=== PATIENT | female | born 1960 | race Caucasian/White ===

== ENCOUNTER → 2023-10-12 16:04 | Outpatient (REF) | payer OTHER, MEDICARE, SELFPAY | LOC: HWWDC 16:04 | PROVIDERS: ATTENDING PHYSICIAN Nurse Practitioner Family; FAMILY PHYSICIAN Family Medicine | DX: Z12.31 Encounter for screening mammogram for malignant neoplasm of breast (principal) | CPT/HCPCS: 77063; 77067 ==

== ENCOUNTER → 2023-10-19 10:19 | Outpatient (REF) | payer MEDICARE, SELFPAY | LOC: WDC 10:19 | PROVIDERS: ATTENDING PHYSICIAN Nurse Practitioner Family; FAMILY PHYSICIAN Family Medicine | DX: R92.8 Other abnormal and inconclusive findings on diagnostic imaging of breast (principal) | CPT/HCPCS: 76642 ==

== ENCOUNTER → 2024-04-17 11:30 | Outpatient (REF) | payer MEDICARE, OTHER, SELFPAY ==
[2024-04-17 13:26] LABS: HDL Cholesterol 77 mg/dl; LDL Cholesterol, Calculated 83 mg/dl; Total Cholesterol 181 mg/dl (50-199); Triglyceride 105 mg/dl (10-149); Very Low Density Lipoprotein 21 mg/dl (0-30)
== END ==
LOC: RAD 11:30
PROVIDERS: ATTENDING PHYSICIAN Family Medicine; REFERRING PHYSICIAN Internal Medicine Cardiovascular Disease
DX: R91.1 Solitary pulmonary nodule (principal); M54.6 Pain in thoracic spine; M54.59 Other low back pain; E78.5 Hyperlipidemia, unspecified
CPT/HCPCS: 36415; 71260; 72072; 72110; 80061; Q9967

== ENCOUNTER 2024-07-10 11:14 | Emergency (ER) | payer MEDICARE, OTHER, SELFPAY ==
[2024-07-10 11:23] VITALS: BP 108/73
--- NOTE | 2024-07-10 12:26 | ED.GENMED ---
History of Present Illness
General
Chief Complaint: Cold/Flu/URI Symptoms
Time Seen by Provider: 07/10/24 12:11
History of Present Illness
History of Present Illness:
64-year-old female presents to the emergency department for evaluation of fever, body aches, headache, and cough productive of blood-tinged mucus for the past 24 to 48 hours. No chest pain or dyspnea. Reports she was diagnosed with petar MCKEON and
recently saw [facility] but is not on any current immunomodulating medications.
Past History
Past History
ED Past Medical History: Psychiatric and Other (Pancreatitis, Sleep apnea)
ED Past Surgical History: Appendectomy, Cholecystectomy and Orthopedic
Social History
Tobacco: Non-smoker
Alcohol: Occasional
Drug: None
Personal:
Living: alone
Employment: Employed
Family History
Family History: Hypertension and CAD; Negative Early CAD
Review of Systems
Review of Systems
Allergies reviewed?: Yes
All Other Systems: ROS reviewed and negative except as documented in HPI and ROS
Phy Exam
Physical Exam
Physical Exam:
GEN: Well appearing, NAD, WDWN
HEENT: Oral mucosa moist, no scleral icterus
Cardiac: Regular rate and rhythm, no murmurs
Lung: No respiratory distress, no tachypnea, lungs clear to auscultation bilaterally
MSK: No gross deformity or injuries
Skin: Good color, no pallor or jaundice, no rashes
Neuro: AO x3, moves all extremities freely
Psych: Calm, cooperative
Course
Orders/Labs/Results
Orders:
Orders
07/10/24 11:28
Electrocardiogram (*1) Urgent
Reason for Study: Other
Other Reason for Exam: SOB, chest heaviness
EKG- Treatment ONCE
07/10/24 12:25
CR Chest - 2 Views Urgent
Comment:
Reason For Exam: cough/hemoptysis
07/10/24 13:09
Acetaminophen [Tylenol] 1,000 mg .ROUTE .STK-MED ONE
07/10/24 13:14
Acetaminophen [Tylenol] 1,000 mg PO NOW STA
07/10/24 13:29
COVID-19 Antigen Urgent
Source: Nasal Swab
Complete Blood Count/With Diff Urgent
Comprehensive Metabolic Panel Urgent
Influenza A+B Rapid Molecular Urgent
WINDY Source: Nasal Swab
Specimen Description:
Abnormal Lab Results
07/10/24
13:29
RBC 4.09 L 10^6/uL
(4.20-5.40)
MCHC 32.6 L g/dL
(33.0-37.0)
MPV 10.6 H fL
(7.4-10.4)
Absolute Lymphs (auto) 0.8 L 10^3/uL
(1.2-3.4)
Neutrophils % 75.9 H %
(42.2-75.2)
Lymphocytes % 15.4 L %
(20.5-51.1)
Sodium 134 L mmol/L
(135-145)
Creatinine 1.2 H mg/dL
(0.6-1.0)
AST 38 H U/L
(14-36)
ALT 43 H U/L
(0-35)
07/10/24 13:29
07/10/24 13:29
Vital Signs
Initial and Last Documented VS:
Initial Vital Signs
Temp Pulse Resp BP Pulse Ox
99.2 F 82 18 108/73 96
07/10/24 11:23 07/10/24 11:23 07/10/24 11:23 07/10/24 11:23 07/10/24 11:23
Last Documented Vital Signs
Temp Pulse Resp BP Pulse Ox
102.1 F H 72 18 117/70 97
07/10/24 13:19 07/10/24 12:42 07/10/24 11:23 07/10/24 13:31 07/10/24 13:45
MDM/Problems Addressed
MDM/Problems Addressed:
Patient positive for influenza A, otherwise labs unremarkable, chest x-ray with no evidence for pneumonia. Given her advanced age and concerns about how this will compromise her long COVID syndrome we will treat with antivirals. Discussed side
effects and benefit of antivirals
*Critical Care Note
Total Time (30-74mins, 75-104mins- exclusive of procedures): Not Applicable
ED Attending Note
-
Portions of this chart may have been created with voice recognition software.� Occasional wrong word or��sound alike� substitutions may have occurred due to the inherent limitations of voice recognition software.
Discharge Plan
Departure
Patient Disposition: Home (Routine Discharge)
Date of Disposition: 07/10/24
Time of Disposition: 14:44
Patient with high blood pressure during this ER visit?: No
Discharge Problem:
Influenza A
Instructions: Flu in adults - Discharge instructions
Prescriptions:
New
oseltamivir [Tamiflu] 75 mg capsule
75 mg PO BID Qty: 10 0RF
No Action
Citalopram 40 MG Tab
40 mg PO DAILY
KLONOPIN 1 MG
1 mg PO BID
Referrals:
Kaiden Stein MD [Family Provider] -
Interventions
Interventions:
*Risk Screen - Suicide Last Done: 07/10/24 11:23
*General Assessment Last Done: 07/10/24 11:23
*Neglect/Abuse Screening Last Done: 07/10/24 11:23
ED- Fall Risk Assessment Last Done: 07/10/24 13:28
*ED COVID-19 Vaccine History Last Done: 07/10/24 15:29
*Nursing Disposition Last Done: 07/10/24 15:29
ED- Pulmonary Assessment Last Done: 07/10/24 13:28
Discharge Date and Time
Discharge Date/Time: 07/10/24 15:30
Print Language: FILIPINO
[2024-07-10 12:42] VITALS: BP 126/62; BMI 34.7
[2024-07-10 12:43] VITALS: BP 126/62
[2024-07-10] MEDS: TYLENOL 1000 MG PO (13:15)
[2024-07-10 13:31] VITALS: BP 117/70
[2024-07-10 14:07] LABS: % Basophils 0.4 % (0-2); % Eosinophils 0.2 % (0-6); % Immature Granulocytes 0.2 % (0-0.5); % Lymphocytes 15.4 % (20.5-51.1); % Monocytes 7.9 % (1.7-9.3); % Neutrophils 75.9 % (42.2-75.2); Absolute Lymphocytes 0.8 10^3/uL (1.2-3.4); Absolute Monocytes 0.4 10^3/uL (0.1-0.6); Absolute Neutrophils 3.9 10^3/uL (1.4-6.5); Hematocrit 38.3 % (37.0-47.0); Hemoglobin 12.5 g/dL (12.0-16.0); Mean Corp Hgb Conc. 32.6 g/dL (33.0-37.0); Mean Corpuscular Hgb 30.6 pg (27.0-31.0); Mean Corpuscular Volume 93.6 fL (81.0-99.0); Mean Platelet Volume 10.6 fL (7.4-10.4); Nucleated Red Blood Cells % 0 %; Platelet Count 166 10^3/uL (130-400); Red Blood Cell Count 4.09 10^6/uL (4.20-5.40); Red Cell Dist. Width 13.2 % (11.5-14.5); White Blood Cell Count 5.2 10^3/uL (4.8-10.8)
[2024-07-10 14:20] LABS: COVID-19 Antigen Negative (Negative)
[2024-07-10 14:22] LABS: ALT (SGPT) 43 U/L (0-35); AST (SGOT) 38 U/L (14-36); Albumin 4.5 g/dl (3.5-5.0); Alkaline Phosphatase 72 U/L (38-126); Blood Urea Nitrogen 12 mg/dl (7-17); Calcium 9.6 mg/dl (8.4-10.2); Carbon Dioxide 29 mmol/L (22-30); Chloride 99 mmol/L (98-107); Estimated Creatinine Clearance 57 ml/min; Glucose 96 mg/dl (70-99); Sodium 134 mmol/L (135-145); Total Bilirubin 0.6 mg/dl (0.2-1.3); Total Protein 6.9 g/dl (6.3-8.2); eGFR 49.92
== END 2024-07-10 15:30 | disposition home or self-care (01) ==
LOC: EMR 11:14
PROVIDERS: Physician Assistant; EMERGENCY PHYSICIAN Emergency Medicine; FAMILY PHYSICIAN Family Medicine
DX: J10.1 Influenza due to other identified influenza virus with other respiratory manifestations (principal); U09.9 Post COVID-19 condition, unspecified
CPT/HCPCS: 99285; 71046; 80053; 85025; 87502; 87811; 93005

== ENCOUNTER 2024-11-16 00:53 | Emergency (ER) | payer MEDICARE, OTHER, SELFPAY ==
[2024-11-16 00:56] VITALS: BP 151/96
--- NOTE | 2024-11-16 01:10 | ED.GENMED ---
History of Present Illness
General
Chief Complaint: Ear Problem
Time Seen by Provider: 11/16/24 01:09
History of Present Illness
History of Present Illness:
TIME OF INITIAL ENCOUNTER: 1:10 AM
HPI: The patient states that she has been working in the yard and her garage and had been developing left-sided ear pain. She describes pain as rather severe. She is concerned that there could be something in the ear such as a tick or other insect.
EXAM:
GENERAL: Well appearing in no distress
HEENT: Right canal unremarkable, when I first looked in the left canal, I did question debris versus organic matter but this was not seen again after I use viscous lidocaine and irrigated with lukewarm water
NEUROLOGIC: Excellent strength all extremities, no obvious coordination deficits
PSYCHIATRIC: Appropriate mental status, normal insight and judgement
EXTREMITIES: Nontender, no edema, moves all extremities equally
SKIN: No rash, no lesions
NUMBER AND COMPLEXITY OF PROBLEMS ADDRESSED AT THE ENCOUNTER
� Chronic conditions affecting care: Anxiety, OCD, has had pancreatitis
� Acute Exacerbation and/or Progression of Chronic Illness: This is an acute problem
� Differential Diagnosis includes: Otitis externa, foreign body, dermatitis/inflammation
AMOUNT AND/OR COMPLEXITY OF DATA TO BE REVIEWED AND ANALYZED
� I performed an independent evaluation of and my interpretation is:
EKG:
CT:
X-rays:
Laboratory Studies:
Other:
� Review of other/old records: I reviewed records, the patient was here in the emergency department diagnosed with influenza A in June of January and
� Clinical information was obtained by an independent historian: None needed
� Prescriptions/Medications Considered but not given:
� Further testing considered but not performed:
RISK OF COMPLICATIONS AND/OR MORBIDITY OR MORTALITY OF PATIENT MANAGEMENT
� Social determinants of health affecting care: Lives at home
� Discussion with other providers: I spoke to pharmacist to obtain antibiotic with steroid drop (we only have Cortisporin otic as opposed to Ciprodex)
� Escalation of care including admission/observation vs risk of discharge considered: There is signs of inflammation with questionable debris in the left canal, given the associated pain, I initially placed viscous lidocaine into
the left canal, irrigated the area with warm tap water. There is 1 area in the inferior aspect of the left canal that seem to be more painful for the patient. I looked multiple times with lighted ear curette but did not see any obvious foreign
body. I recommend that she follows up ENT. Will place on Cortisporin otic.
ANY OTHER UPDATES:
1:50 AM: Overall patient is improved.
Past History
Past History
ED Past Medical History: Psychiatric and Other (Pancreatitis, Sleep apnea)
ED Past Surgical History: Appendectomy, Cholecystectomy and Orthopedic
Social History
Tobacco: Non-smoker
Alcohol: Occasional
Drug: None
Personal:
Living: alone
Employment: Employed
Family History
Family History: Hypertension and CAD; Negative Early CAD
Phy Exam
Physical Exam
Physical Exam:
See HPI
Course
Orders/Labs/Results
Orders:
Orders
11/16/24 01:16
Viscous Lidocaine 2% [Xylocaine Viscous Cup] 15 ml .ROUTE .STK-MED ONE
11/16/24 01:37
Neomycin/Polymyxin/Hc [Cortisporin Otic Suspension] See Dose Instructions OTIC NOW STA
Vital Signs
Initial and Last Documented VS:
Initial Vital Signs
Temp Pulse Resp BP Pulse Ox
36.6 C 75 18 151/96 98
11/16/24 00:56 11/16/24 00:56 11/16/24 00:56 11/16/24 00:56 11/16/24 00:56
Last Documented Vital Signs
Temp Pulse Resp BP Pulse Ox
36.6 C 75 18 133/78 97
11/16/24 00:56 11/16/24 00:56 11/16/24 00:56 11/16/24 01:30 11/16/24 01:30
*Critical Care Note
Total Time (30-74mins, 75-104mins- exclusive of procedures): Not Applicable
ED Attending Note
-
Portions of this chart may have been created with voice recognition software.� Occasional wrong word or��sound alike� substitutions may have occurred due to the inherent limitations of voice recognition software.
Discharge Plan
Departure
Patient Disposition: Home (Routine Discharge)
Date of Disposition: 11/16/24
Time of Disposition: 01:39
Patient with high blood pressure during this ER visit?: Yes
Discharge Problem:
Otitis externa
Prescriptions:
No Action
Citalopram 40 MG Tab
40 mg PO DAILY
KLONOPIN 1 MG
1 mg PO BID
oseltamivir [Tamiflu] 75 mg capsule
75 mg PO BID Qty: 10 0RF
Referrals:
Kaiden Stein MD [Family Provider] -
Edis Mejias MD [Active] - Next open appointment
Activity Restrictions/Additional Instructions:
Given your ongoing concerns with questionable etiology, I recommend that you follow-up with an ENT Dr. Mejias. I recommend that you use 4 of the Cortisporin otic drops 4 times per day to the left ear. Cortisporin otic has both antibiotic and
steroid to help decrease inflammation and treat potential infection. Return here if worse or other concerns.
Interventions
Interventions:
*Risk Screen - Suicide Last Done: 11/16/24 00:56
*General Assessment Last Done: 11/16/24 00:56
*Neglect/Abuse Screening Last Done: 11/16/24 00:56
*ED- Fall Risk Assessment Last Done: 11/16/24 01:12
*ED COVID-19 Vaccine History Last Done: 11/16/24 00:56
*Nursing Disposition Last Done: 11/16/24 01:45
Discharge Date and Time
Print Language: ROMANIAN
[2024-11-16 01:30] VITALS: BP 133/78
[2024-11-16] MEDS: CORTISPORIN OTIC SUSPENSION 5 DROP OTIC (01:42)
== END 2024-11-16 01:49 | disposition home or self-care (01) ==
LOC: EMR 00:53
PROVIDERS: EMERGENCY PHYSICIAN Emergency Medicine; FAMILY PHYSICIAN Family Medicine
DX: H60.92 Unspecified otitis externa, left ear (principal); G47.30 Sleep apnea, unspecified; Z82.49 Family history of ischemic heart disease and other diseases of the circulatory system; Z90.49 Acquired absence of other specified parts of digestive tract
CPT/HCPCS: 99284

== ENCOUNTER → 2025-01-16 06:48 | Outpatient (REF) | payer MEDICARE, OTHER, SELFPAY | LOC: PAVMRI 06:48 | PROVIDERS: ATTENDING PHYSICIAN Anesthesiology Pain Medicine; FAMILY PHYSICIAN Family Medicine | DX: M47.817 Spondylosis without myelopathy or radiculopathy, lumbosacral region (principal); M54.59 Other low back pain | CPT/HCPCS: 72148 ==

== ENCOUNTER → 2025-01-30 14:53 | Outpatient (REF) | payer MEDICARE, OTHER, SELFPAY | LOC: HWWDC 14:53 | PROVIDERS: ATTENDING PHYSICIAN Family Medicine | DX: Z12.31 Encounter for screening mammogram for malignant neoplasm of breast (principal) | CPT/HCPCS: 77063; 77067 ==

== ENCOUNTER 2025-04-26 03:31 | Emergency (ER) | payer MEDICARE, OTHER, SELFPAY ==
[2025-04-26 03:32] VITALS: BP 138/90
[2025-04-26 04:29] LABS: Hematocrit 39.3 % (37.0-47.0); Hemoglobin 13.0 g/dL (12.0-16.0); Mean Corp Hgb Conc. 33.1 g/dL (33.0-37.0); Mean Corpuscular Volume 91.4 fL (81.0-99.0); Nucleated Red Blood Cells % 0 %; Platelet Count 256 10^3/uL (130-400); Red Cell Dist. Width 12.7 % (11.5-14.5)
[2025-04-26 04:38] VITALS: BMI 27.0
[2025-04-26 04:51] LABS: ALT (SGPT) 15 U/L (0-35); AST (SGOT) 17 U/L (14-36); Albumin 4.4 g/dl (3.5-5.0); Alkaline Phosphatase 54 U/L (38-126); Blood Urea Nitrogen 15 mg/dl (7-17); Calcium 10.3 mg/dl (8.4-10.2); Carbon Dioxide 30 mmol/L (22-30); Chloride 106 mmol/L (98-107); Estimated Creatinine Clearance 60 ml/min; Glucose 100 mg/dl (70-99); Lipase 169 U/L (23-300); Potassium 3.9 mmol/L (3.5-5.1); Sodium 140 mmol/L (135-145); Total Protein 6.7 g/dl (6.3-8.2); eGFR > 60.00
--- NOTE | 2025-04-26 06:01 | ED.GENMED ---
History of Present Illness
General
Chief Complaint: Abdominal Pain
Time Seen by Provider: 04/26/25 06:01
History of Present Illness
History of Present Illness:
FOCUSED PAST MEDICAL HISTORY
-Has had pancreatitis; OCD; had cholecystectomy in 2009 (ERCP with pancreatic stent at [facility] in 2009
REVIEW OF OLD RECORDS
- I reviewed records, the patient was seen with a normal lipase
Note:
CHIEF COMPLAINT(S)
- Abdominal pain and nausea.
HISTORY OF PRESENT ILLNESS
The patient is a 64-year-old female with a history of long COVID-19, who presents to the emergency department with severe abdominal pain and nausea. The patient reported experiencing nausea for about two weeks, specifically noting vomiting on the
last two Sundays following a 7.5 mg dose of Zepbound. She describes the abdominal pain as excruciating, constant, and localized to the upper abdomen, extending into the left side and back. She took a 5 mg dose of Percocet for the pain at 8:00 PM
yesterday, which she uses for her chronic back pain. The pain worsened over the past three days, initially presenting as indigestion but escalating to severe discomfort. She has a history of pancreatitis in her 30s and had her gallbladder removed in
1999, at which time a biliary stent was placed. Despite a normal lipase level of 169, the patient is concerned about pancreatitis due to the characteristic pain and past medical experiences.
PAST MEDICAL AND SURGICAL HISTORY
- Cholecystectomy with biliary stent placement in 1999.
- Long COVID-19 for two years.
- History of pancreatitis in her 30s.
- Recent back pain treated with radiotherapy ablation due to caregiving responsibilities degrading her condition.
SOCIAL DETERMINANTS AFFECTING HEALTH
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
MEDICATIONS
- Injection for weight loss (dose increase recently to 7.5 mg).
- Percocet 5 mg.
REVIEW OF SYSTEMS
- Gastrointestinal: Nausea, vomiting, severe upper abdominal pain extending to the left side and back.
- Musculoskeletal: Chronic back pain due to previous injury.
PHYSICAL EXAM
General: Alert, appears
Skin: Warm, dry.
Head: Normocephalic, atraumatic.
Neck: Supple, trachea midline.
Eye Ears, nose, mouth and throat: Oral mucosa moist.
Cardiovascular: Normal peripheral perfusion, no edema.
Respiratory: Respirations are non-labored.
Gastrointestinal: Tenderness in the upper abdomen. No lower abdominal tenderness, no peritoneal signs
Back: Normal range of motion, tender back with musculoskeletal issues noted.
Musculoskeletal: Normal range of motion, normal strength, back pain present.
Neurological: Alert and oriented to person, place, time, and situation, no focal neurological deficit observed.
Psychiatric: Cooperative, appropriate mood & affect.
PLAN
- Order a CT scan with contrast pre-medication due to the patient�s allergy to iodine-based contrasts.
- Provide IV fluids for hydration.
- Administer medication for pain and nausea control.
- Recommend a light oral intake, even if pancreatitis isnt confirmed by imaging, due to symptom presentation.
DIFFERENTIAL DIAGNOSIS
The Differential Diagnosis includes, in no particular order and is not limited to:
- Pancreatitis
- Peptic ulcer disease
- Cholecystitis
- Gastroesophageal reflux disease
- Gastritis
- Biliary colic
- Hepatitis
- Intestinal obstruction
- Myocardial infarction
- Abdominal aortic aneurysm
RADIOLOGY
- CT imaging obtained
EKG
- Sinus 59, leftward axis deviation, nonspecific ST abnormality no significant change in comparison to 07/10/2024
LABS
- Lipase normal, chemistries unremarkable
UPDATE
-SUMMARY OF ENCOUNTER
The patient, a 64-year-old female with a history of long COVID-19 and previous pancreatitis, presented to the emergency department with severe abdominal pain and nausea. Her symptoms have been linked to recent use of a weight loss medication,
suspected to be Mounjaro, which was increased to a 7.5 mg dose. The patient reported two episodes of vomiting following this increased dose on Sundays. After evaluation, the findings indicated no signs of pancreatitis based on normal lipase levels
and imaging results. The possibility of stomach acid-related issues was considered, and the patient was given an H2 antagonist (famotidine) for relief. Due to her symptoms coinciding with the medication, it was suggested to hold off on the next dose
to assess symptom improvement.
DISPOSITION
The patient is being discharged.
ASSESSMENT
The abdominal pain and nausea are suspected to be side effects of the weight loss medication, potentially related to gastrointestinal irritation or sensitivity to GLP-1 receptor agonists.
EMERGENCY TREATMENTS ADMINISTERED
The patient was given intravenous fluids for hydration and a narcotic for pain management. An additional dose of a narcotic was provided at a lower dose.
PLAN
The patient was advised to discontinue the weight loss medication temporarily and follow up with her baby attendant. A prescription for ondansetron (Zofran) was sent to her pharmacy to manage nausea.
INDEPENDENT REVIEW OF LABS AND INTERPRETATION OF TESTS
My independent review of the lipase level indicates it is normal at 169, suggesting no current pancreatitis.
PATIENT EDUCATION AND COUNSELING
The patient was counseled on the potential side effects of GLP-1 receptor agonists like the suspected Mounjaro, and the link between her symptoms and the medication was discussed. Meal management advice was given, suggesting smaller, light meals to
alleviate gastrointestinal symptoms. Advice was given to contact the baby attendant for further medication management and dosage discussions.
FOLLOW-UP INSTRUCTIONS
The patient was instructed to follow up with her baby attendant regarding continued management of her weight loss medication and consider dose adjustments.
MEDICATION RECONCILIATION
- Ondansetron (Zofran) was prescribed for nausea.
- Additional intravenous fluids and narcotics were administered in the ED.
MEDICAL DECISION MAKING
1. Number and Complexity of Problems Addressed:
Chronic conditions affecting care include long COVID-19, past pancreatitis, current use of weight loss medication. Differential diagnosis: pancreatitis, peptic ulcer disease, cholecystitis, gastroesophageal reflux disease, gastritis, biliary colic,
hepatitis, intestinal obstruction, myocardial infarction, abdominal aortic aneurysm.
2. Data:
Category 1:
- My independent interpretation of the imaging study and labs confirms no signs of pancreatitis.
Category 3:
- Discussion of management with the patient, emphasizing the importance of contacting her baby attendant for medication review.
3. Risk:
Consideration of Admission/Observation: Escalation of care including admission/observation was considered given the complexity and risk of the patients presenting complaint, exam findings, and her underlying comorbidities. However, ultimately, I
feel the patient is safe for outpatient management with close follow-up. Reasoning: Work-up reassuring, does not reveal any acute life/organ-threatening processes, patients symptoms well controlled upon reevaluation, reexamination is reassuring,
vitals are stable, patient agreeable with discharge, reliable for follow-up.
DIAGNOSIS
- Adverse effect of unspecified drugs, medicinal and biological substances (T88.7XXA)
- Abdominal pain, unspecified site (R10.9)
- Nausea (R11.0)
Past History
Past History
ED Past Medical History: Psychiatric and Other (Pancreatitis, Sleep apnea)
ED Past Surgical History: Appendectomy, Cholecystectomy and Orthopedic
Social History
Tobacco: Non-smoker
Alcohol: Occasional
Drug: None
Personal:
Living: alone
Employment: Employed
Family History
Family History: Hypertension and CAD; Negative Early CAD
Phy Exam
Physical Exam
Physical Exam:
See HPI
Course
Orders/Labs/Results
Orders:
Orders
04/26/25 04:15
Complete Blood Count/With Diff Urgent
Comprehensive Metabolic Panel Urgent
Lipase Urgent
04/26/25 06:18
CT Abd/pelvis W Iv Cont Urgent
Comment:
Reason For Exam: epigastric pain
04/26/25 06:19
0.9% Sodium Chloride 1000 ml [Nss] 1,000 ml IV BOLUS
Diphenhydramine [Benadryl] 25 mg IV NOW STA
HYDROmorphone [Dilaudid] 1 mg IV NOW STA
MethylPREDNISolone PF [Solu-Medrol Pf] 125 mg IV NOW STA
04/26/25 06:20
Famotidine [Pepcid] 20 mg IV NOW STA
Ondansetron Injectable [Zofran] 4 mg IV NOW STA
04/26/25 06:22
Electrocardiogram (*1) Urgent
Reason for Study: Chest Pain
EKG- Treatment ONCE
04/26/25 09:36
0.9% Sodium Chloride 1000 ml [Nss] 1,000 ml IV BOLUS
HYDROmorphone [Dilaudid] 0.5 mg IV NOW STA
Abnormal Lab Results
04/26/25
04:15
Glucose 100 H mg/dl
(70-99)
Calcium 10.3 H mg/dl
(8.4-10.2)
04/26/25 04:15
04/26/25 04:15
Vital Signs
Initial and Last Documented VS:
Initial Vital Signs
Temp Pulse Resp BP Pulse Ox
36.8 C 70 20 138/90 98
04/26/25 03:32 04/26/25 03:32 04/26/25 03:32 04/26/25 03:32 04/26/25 03:32
Last Documented Vital Signs
Temp Pulse Resp BP Pulse Ox
36.8 C 70 20 138/90 98
04/26/25 03:32 04/26/25 03:32 04/26/25 03:32 04/26/25 03:32 04/26/25 06:06
*Pulse Oximetry
SaO2: 98
Oxygen Mode of Delivery: Room air
Patient hypoxic: no
*Critical Care Note
Total Time (30-74mins, 75-104mins- exclusive of procedures): Not Applicable
ED Attending Note
-
Portions of this chart may have been created with voice recognition software.� Occasional wrong word or��sound alike� substitutions may have occurred due to the inherent limitations of voice recognition software.
Discharge Plan
Departure
Patient Disposition: Home (Routine Discharge)
Date of Disposition: 04/26/25
Time of Disposition: 09:36
Patient with high blood pressure during this ER visit?: Yes
Discharge Problem:
Abdominal pain
Instructions: Nausea and Vomiting, Adult (DC), Abdominal Pain, BLOOD PRESSURE
Prescriptions:
New
ondansetron HCl 4 mg tablet
4 mg PO Q8H PRN (Reason: nausea and vomiting) Qty: 14 0RF
No Action
Citalopram 40 MG Tab
40 mg PO DAILY
KLONOPIN 1 MG
1 mg PO BID
oseltamivir [Tamiflu] 75 mg capsule
75 mg PO BID Qty: 10 0RF
Referrals:
Kaiden Stein MD [Family Provider, Family Practice]
Activity Restrictions/Additional Instructions:
Your white blood cell count is normal, your electrolytes are normal, your lipase and liver numbers are normal. There is no sign of inflammation in the abdomen. Incidentally, compression fracture of the superior endplate of L5 is noted similar in
appearance to the MRI that you had in January. There is no sign of pancreatitis or other anatomic cause for your pain. I recommend that you call your baby attendant to discuss further use of Zepbound. I suspect that your symptoms could be related
to Zepbound use.
Interventions
Interventions:
*Risk Screen - Suicide Last Done: 04/26/25 03:32
*General Assessment Last Done: 04/26/25 04:41
*Neglect/Abuse Screening Last Done: 04/26/25 03:32
*ED COVID-19 Vaccine History Last Done: 04/26/25 04:40
*ED Influenza Vaccine History Last Done: 04/26/25 04:40
BD-Owxyti-Fkawswklwa Assessment Last Done: 04/26/25 04:42
Discharge Date and Time
Print Language: MAORI
[2025-04-26] MEDS: ZOFRAN 4 MG IV (06:48)
[2025-04-26] MEDS: BENADRYL 25 MG IV (06:49)
[2025-04-26] MEDS: DILAUDID 1 MG IV (06:50)
[2025-04-26] MEDS: PEPCID 20 MG IV (06:54)
[2025-04-26] MEDS: NSS 1000 IV ×2 (06:55→09:45)
[2025-04-26] MEDS: SOLU-MEDROL PF 125 MG IV (07:05)
[2025-04-26] MEDS: DILAUDID 0.5 MG IV (09:42)
== END 2025-04-26 11:57 | disposition home or self-care (01) ==
LOC: EMR 03:31
PROVIDERS: Emergency Medicine; EMERGENCY PHYSICIAN Emergency Medicine; FAMILY PHYSICIAN Family Medicine
DX: R10.9 Unspecified abdominal pain (principal); R11.0 Nausea; T50.995A Adverse effect of other drugs, medicaments and biological substances, initial encounter; G47.30 Sleep apnea, unspecified; G89.29 Other chronic pain; Z91.041 Radiographic dye allergy status; Z86.39 Personal history of other endocrine, nutritional and metabolic disease; Z92.3 Personal history of irradiation
CPT/HCPCS: 96374; 96375; 96376; 96361; 99284; 74177; 80053; 83690; 85025; 93005; Q9967

== ENCOUNTER → 2025-05-11 08:28 | Outpatient (REF) | payer MEDICARE, OTHER, SELFPAY | LOC: PAVMRI 08:28 | PROVIDERS: ATTENDING PHYSICIAN Student in an Organized Health Care Education/Training Program; FAMILY PHYSICIAN Family Medicine | DX: M70.62 Trochanteric bursitis, left hip (principal); M47.816 Spondylosis without myelopathy or radiculopathy, lumbar region; M70.61 Trochanteric bursitis, right hip; M81.0 Age-related osteoporosis without current pathological fracture | CPT/HCPCS: 72195; 77080 ==